=== PATIENT | female | born 1985 | race African-American/Black ===

== ENCOUNTER 2016-08-17 13:33 | Emergency (ER) | payer SELFPAY ==
[~2016-08-17] VITALS: Ht 172.7 cm; Wt 121.6 kg
[2016-08-17 14:08] VITALS: BP 112/69
[2016-08-17] MEDS ORDERED: Morphine Sulfate 4mg/ml Inj IVP ONE (14:30)
[2016-08-17] MEDS ORDERED: DiphenhydrAMINE 50mg/ml Inj IVP ONE (14:30)
--- NOTE | 2016-08-17 14:42 | Emergency Room Report ---
History of Present Illness General Chief Complaint: Pain Source: Patient Present Illness HPI This patient states she believes she is having a sickle crises. She states that her symptoms started yesterday. She states she has bilateral hip pain and back pain. She states that she moved from [place] 2 weeks ago. 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 She states she also was recently diagnosed with EBSL bacteremia and had been undergoing home IV antibiotics by an RN. Patient states that she has tried care and is having difficulty with getting approval for the home IV antibiotics. The patient does not have a primary care physician here in [place] yet. She denies chest pain or shortness of breath. She denies abdominal pain. She denies fever or chills. She is requesting Dilantin and Benadryl. The patient did not bring any of her medical records. She has no other complaints. Allergies: Coded Allergies: IODINE (Verified Allergy, Unknown, 08/17/16) KETOROLAC (Verified Allergy, Unknown, 08/17/16) Patient History Past Medical History: see triage record, ME, CVA/TIA, other - SCD, ALL, avascular necrosis of L. hip, PE, DVT Social History: Denies: alcohol use, drug use, smoking Last Menstrual Period: 08/04/16 Now: No : 9 Para: 9 Reviewed Nursing Documentation: PMH: Agreed, PSxH: Agreed Nursing Documentation-PMH Past Medical History: No History, Except For Hx Cardiac Problems: Yes - sickle cell, CHF, 2 episode of stroke, Heart attack 03/15 Review of Systems All Other Systems: negative except mentioned in HPI Physical Exam Vital Signs Date Time Temp Pulse Resp B/P Pulse Ox O2 Delivery O2 Flow Rate FiO2 08/17/16 13:40 98.2 115 20 133/82 100 Room Air Sp02 EP Interpretation: reviewed, normal General Appearance: no apparent distress, alert, GCS 15, non-toxic Head: normocephalic, atraumatic Eyes: bilateral eye PERRL, bilateral eye normal inspection ENT: hearing grossly normal, normal pharynx, no angioedema, normal voice Neck: full range of motion, supple/symm/no masses Respiratory: chest non-tender, lungs clear, normal breath sounds, speaking full sentences Cardiovascular #1: regular rate, rhythm, no edema Gastrointestinal: normal bowel sounds, non tender, soft, non-distended, no guarding, no rebound Rectal: deferred Musculoskeletal: back normal, gait/station normal, normal range of motion, non- tender Neurologic: alert, oriented x3, responsive, motor strength/tone normal, sensory intact, speech normal Psychiatric: judgement/insight normal, memory normal, mood/affect normal, no suicidal/homicidal ideation Skin: normal color, no rash, warm/dry, well hydrated Medical Decision Making Diagnostic Impression: Primary Impression: Sickle cell pain crisis ER Course She has a history of sickle cell. It also appears that she has narcotic dependence. She was very demanding for IV Dilaudid and Benadryl. She did not want to try morphine. The patient also refused to get an EKG. I felt that I should order an EKG given the patient's history of heart attack and congestive heart failure according to her. However, she refused. However, I educated the patient that morphine is an appropriate narcotic and that she would need to try morphine before I would be giving Dilaudid. Patient's laboratory workup to include a CBC, CMP, cardiac enzymes showed a mild anemia with a hemoglobin of 9. Patient has a low white blood cell count of 2.2. This is likely related to the ALL. Regardless, the patient feels that she is having any pain crises and so she will be admitted for pain control. Patient's vital signs were stable and normal. The patient was afebrile. I suspect this patient also has an element of narcotic dependence and addiction given how demanding she was for Dilaudid. She reports that she takes oral Dilaudid at home. The patient has not obtained a primary care physician despite being in [place] for couple weeks. This patient is admitted for further pain control. 16:30 Add note: This patient continued to demand Benadryl to potentiate her Dilaudid. I did not feel this was indicated. I did offer the patient admission to the hospital for further pain crises control. The patient seemed to be very upset that I was not giving her a larger doses of opiods. I do not feel that this patient should be receiving large doses of IV opioids in the emergency department, despite her tolerance. The patient did allow an EKG and does have a mild sinus tachycardia. 18:00 I discussed the case with the inpatient physician Dr. Deric Rodgers. The patient wanted to be admitted for further pain crises. The patient is not in a vaso-occlusive crises. The patient's laboratory findings are not consistent with this. This is management of pain. Dr. Deric Rodgers declined to admit this patient stating that she is not in a vaso-occlusive crisis. He states that she needs to manage her chronic pain at home and refused to admit her. The patient was discharged. She was not pleased. I did not identify an emergency medical condition. Labs Test 08/17/16 14:35 White Blood Count 2.2 K/UL (4.8-10.8) Red Blood Count 2.97 M/UL (4.20-5.40) Hemoglobin 9.5 G/DL (12.0-16.0) Hematocrit 29.7 % (37.0-47.0) Mean Corpuscular Volume 100 FL (80-99) Mean Corpuscular Hemoglobin 31.9 PG (27.0-31.0) Mean Corpuscular Hemoglobin Concent 31.9 G/DL (32.0-36.0) Red Cell Distribution Width 20.7 % (11.6-14.8) Platelet Count 168 K/UL (150-450) Mean Platelet Volume 7.2 FL (6.5-10.1) Neutrophils (%) (Auto) % (45.0-75.0) Lymphocytes (%) (Auto) % (20.0-45.0) Monocytes (%) (Auto) % (1.0-10.0) Eosinophils (%) (Auto) % (0.0-3.0) Basophils (%) (Auto) % (0.0-2.0) Sodium Level 137 mEQ/L (135-145) Potassium Level 3.9 mEQ/L (3.4-4.9) Chloride Level 101 mEQ/L (98-107) Carbon Dioxide Level 18 mEQ/L (20-30) Anion Gap 18 (5-15) Blood Urea Nitrogen 8 mg/dL (7-23) Creatinine 0.6 mg/dL (0.5-0.9) Estimat Glomerular Filtration Rate > 60 mL/min (>60) Glucose Level 108 mg/dL (74-106) Calcium Level 8.2 mg/dL (8.6-10.2) Total Bilirubin 0.3 mg/dL (0.0-1.2) Aspartate Amino Transf (AST/SGOT) 15 U/L (5-40) Alanine Aminotransferase (ALT/SGPT) 10 U/L (3-33) Alkaline Phosphatase 98 U/L (35-104) Total Creatine Kinase 88 U/L (26-140) Troponin I < 0.30 ng/mL (<=0.30) Total Protein 6.4 g/dL (6.6-8.7) Albumin 3.4 g/dL (3.5-5.2) Globulin 3.0 g/dL Albumin/Globulin Ratio 1.1 (1.0-2.7) Rhythm Strip Diag. Results EP Interpretation: yes Rate: 100's Rhythm: no PVC's, no ectopy, other Other Impression S.tachycardia Last Vital Signs Date Time Temp Pulse Resp B/P Pulse Ox O2 Delivery O2 Flow Rate FiO2 08/17/16 14:10 108 22 Room Air 08/17/16 14:08 98.2 112/69 99 Disposition: HOME, SELF-CARE Condition: Stable Patient Instructions: Chronic Pain CHARISSE COELLO D.O. Aug 17, 2016 14:42
[2016-08-17 15:05] LABS: MEAN CORPUSCULAR HEMOGLOBIN 31.9 PG (27.0-31.0); MEAN CORPUSCULAR HGB CONC 31.9 G/DL (32.0-36.0); MEAN CORPUSCULAR VOLUME 100 FL (80-99); MEAN PLATELET VOLUME 7.2 FL (6.5-10.1); PLATELET COUNT 168 K/UL (150-450); RED BLOOD COUNT 2.97 M/UL (4.20-5.40); RED CELL DISTRIBUTION WIDTH 20.7 % (11.6-14.8); WHITE BLOOD COUNT 2.2 K/UL (4.8-10.8)
[2016-08-17 15:12] LABS: ALANINE AMINOTRANSFERASE 10 U/L (3-33); ALBUMIN/GLOBULIN RATIO 1.1 (1.0-2.7); ANION GAP 18 (5-15); ASPARTATE AMINO TRANSFERASE 15 U/L (5-40); CALCIUM 8.2 mg/dL (8.6-10.2); CARBON DIOXIDE 18 mEQ/L (20-30); CHLORIDE 101 mEQ/L (98-107); CREATININE 0.6 mg/dL (0.5-0.9); GLOMERULAR FILTRATION RATE > 60 mL/min (>60); HEMOLYSIS 12; POTASSIUM 3.9 mEQ/L (3.4-4.9); SODIUM 137 mEQ/L (135-145); TOTAL PROTEIN 6.4 g/dL (6.6-8.7); TROPONIN I < 0.30 ng/mL (<=0.30)
[2016-08-17 15:22] LABS: CKMB < 1.5 ng/mL (< 3.8)
[2016-08-17] MEDS ORDERED: HYDROmorphone 1mg/NS 50ml IVPB 50 ML IVPB ONE ×2 (15:30→18:15)
[2016-08-17] MEDS ORDERED: UNOBMED (16:05)
[2016-08-17 16:38] LABS: EOSINOPHILS % (MANUAL) 1 % (0-3); LYMPHOCYTES % (MANUAL) 45 % (20-45); NEUTROPHILS % (MANUAL) 43 % (45-75); TOTAL CELLS COUNTED 100
[2016-08-17 16:39] LABS: ANISOCYTOSIS 3+; BAND NEUTROPHILS % (MANUAL) 0 % (0-8); BASOPHILS % (MANUAL) 0 % (0-2); HYPOCHROMASIA 1+; MACROCYTES 1+; PLATELET ESTIMATE ADEQUATE
[2016-08-17 16:41] LABS: PLATELET MORPHOLOGY NORMAL
[2016-08-17] MEDS ORDERED: K-TAB10 MEQ PO (16:54)
[2016-08-17] MEDS ORDERED: LIPITOR40 MG ORAL (16:54)
[2016-08-17] MEDS ORDERED: ASPIR 8181 MG ORAL (16:54)
[2016-08-17] MEDS ORDERED: TOPIRAMATE100 MG ORAL (16:54)
[2016-08-17] MEDS ORDERED: CYCLOBENZAPRINE10 MG ORAL (16:54)
[2016-08-17] MEDS ORDERED: FOLIC ACID1 MG ORAL (16:54)
[2016-08-17] MEDS ORDERED: CELEXA20 MG ORAL (16:54)
[2016-08-17] MEDS ORDERED: NEURONTIN800 MG ORAL (16:54)
[2016-08-17] MEDS ORDERED: OXCARBAZEPINE300 MG PO (16:54)
[2016-08-17] MEDS ORDERED: CELLCEPT250 MG ORAL (16:54)
[2016-08-17] MEDS ORDERED: PLAQUENIL200 MG ORAL (16:54)
[2016-08-17] MEDS ORDERED: FUROSEMIDE20 M1 ORAL (16:54)
[2016-08-17] MEDS ORDERED: HYDREA500 MG PO (16:54)
[2016-08-17] MEDS ORDERED: BENADRYL25 M3 PO (16:54)
[2016-08-17] MEDS ORDERED: DILAUDID8 MG PO (16:54)
[2016-08-17] MEDS ORDERED: AMBIEN10 MG ORAL (16:54)
[2016-08-17] MEDS ORDERED: COUMADIN10 MG ORAL (16:54)
[2016-08-17] MEDS ORDERED: SEROQUEL200 MG ORAL (16:54)
[2016-08-17] MEDS ORDERED: PLAVIX75 MG ORAL (16:54)
[2016-08-17 17:33] LABS: APPEARANCE,URINE CLEAR; KETONES,URINE NEGATIVE (NEGATIVE); LEUKOCYTE ESTERASE ,URINE NEGATIVE (NEGATIVE); NITRITE,URINE NEGATIVE (NEGATIVE); PH,URINE 6 (4.5-8.0); PROTEIN,URINE NEGATIVE (NEGATIVE); UROBILINOGEN,URINE NORMAL MG/DL (0.0-1.0)
[2016-08-17 17:43] VITALS: BP 128/72
[2016-08-17 18:59] VITALS: BP 114/44
== END 2016-08-17 19:00 | disposition home or self-care (01) ==
LOC: EMR 15:25 → 2E 16:30 → UNDOADMIN 16:30 → EDBEDREQ 16:55
DX: D57.00 Hb-SS disease with crisis, unspecified (principal); I50.9 Heart failure, unspecified; Z86.73 Personal history of transient ischemic attack (TIA), and cerebral infarction without residual deficits; I25.2 Old myocardial infarction; Z88.8 Allergy status to other drugs, medicaments and biological substances; Z86.718 Personal history of other venous thrombosis and embolism; Z86.711 Personal history of pulmonary embolism
CPT/HCPCS: 36415; 80053; 80300; 81003; 82550; 82553; 83605; 84484; 85007; 85025; 87040; 93005; 96360; 96361; 96374; 96375; 99284; J1170; J1200; J2270